=== PATIENT | male | born 1950 | race Caucasian/White ===

== ENCOUNTER 2016-06-09 16:08 | Emergency (ER) | payer MEDICARE, OTHER | END 2016-06-09 17:45 | disposition home or self-care (01) | LOC: ER 16:08 | DX: J11.1 Influenza due to unidentified influenza virus with other respiratory manifestations (principal); J44.9 Chronic obstructive pulmonary disease, unspecified; I48.91 Unspecified atrial fibrillation; Z90.49 Acquired absence of other specified parts of digestive tract; Z79.82 Long term (current) use of aspirin; Z79.899 Other long term (current) drug therapy | CPT/HCPCS: 87502 ==